=== PATIENT | female | born 1980 | race Caucasian/White ===

== ENCOUNTER → 2024-08-23 14:06 | Outpatient (CLI) | payer BC, SELFPAY ==
--- NOTE | 2024-08-23 14:45 | DI.US.S_ITS ---
PROCEDURE: US THYROID INDICATIONS: GOITER TECHNIQUE: Real-time scanning was performed of the thyroid gland, with image documentation. COMPARISON: None. FINDINGS: Thyroid: Right lobe measures 4.8 x 1.8 x 1.7 cm. Left lobe measures 4.2 x 1.1 x 0.9 cm. Isthmus is 0.2 cm thick. Echotexture is heterogenous and edematous with hyperemia demonstrated on color Doppler. No definite nodules are seen. IMPRESSION: 1. Findings compatible with thyroiditis. 2. No suspicious nodules. Dictated by: Mark Burgos M.D. on 08/24/2024 at 12:03 Approved by: Mark Burgos M.D. on 08/24/2024 at 12:05
[2024-08-23 15:14] LABS: Add Manual Diff / Slide Review NO; Basophils Absolute Auto 100 /uL (0-100); Basophils Percent Auto 0.8 % (0-2); Eosinophils Absolute Auto 100 /uL (0-450); Eosinophils Percent Auto 2.1 % (2-4); Hematocrit 40.5 % (36-46); Hemoglobin 13.8 g/dL (12.0-16.0); Lymphocytes Absolute Auto 1800 /uL (1100-4500); Lymphocytes Percent Auto 29.7 % (25-40); Mean Corpuscular Hemoglobin 29.6 PG (26-34); Monocytes Absolute Auto 400 /uL (0-900); Monocytes Percent Auto 6.3 % (3-14); Neutrophils Absolute Auto 3700 /uL (1500-7000); Neutrophils Percent Auto 61.1 % (50-75); Platelet Count 304 X10^3/uL (150-400); Red Blood Cell Count 4.66 X10^6/uL (4.0-5.2); Red Cell Distribution Width 12.7 % (11.6-14.8)
[2024-08-23 15:40] LABS: Alanine Aminotransferase 36 IU/L (<35); Albumin 4.6 g/dL (3.5-5.0); Albumin Globulin Ratio 1.6 (1.0-2.8); Alkaline Phosphatase 50 U/L (38-126); Aspartate Aminotransferase 28 IU/L (14-36); Bilirubin Total 0.4 mg/dL (0.2-1.3); Blood Urea Nitrogen 9 mg/dL (7-17); Calcium 9.6 mg/dL (8.4-10.2); Carbon Dioxide 27 mmol/L (22-32); Chloride 103 mmol/L (98-107); Estimated Glomerular Filt Rate > 60 mL/min (>60); Globulin 2.8 g/dL (1.7-4.1); Glucose 88 mg/dL (70-100); HEMOLYSIS < 15 (0-50); Potassium 4.1 mmol/L (3.4-5.1); Sodium 139 mmol/L (137-145); Total Protein 7.4 g/dL (6.3-8.2)
[2024-08-23 15:54] LABS: Free T3, Triiodothyronine Free 3.92 pg/mL (2.77-5.27); Free T4, Direct Thyroxine 1.22 ng/dL (0.78-2.19)
[2024-08-23 16:08] LABS: Thyroid Stimulating Hormone 2.16 uIU/mL (0.47-4.68)
[2024-08-23 16:53] LABS: Erythrocyte Sedimentation Rate 17 MM/HR (0-20)
== END ==
PROVIDERS: PCP Family Medicine; Referring Provider Family Medicine; Visit Provider Family Medicine
DX: E04.9 Nontoxic goiter, unspecified (principal); E88.819 Insulin resistance, unspecified
CPT/HCPCS: 36415; 76536; 80053; 83036; 84439; 84443; 84481; 85025; 85651; 86376; 86800

== ENCOUNTER → 2025-06-07 10:32 | Outpatient (CLI) | payer OTHER, SELFPAY ==
--- NOTE | 2025-06-07 10:34 | DI.US.S_ITS ---
PROCEDURE: US PELVIC COMPLETE
== END ==
LOC: US 10:33
PROVIDERS: PCP Nurse Practitioner Family; Referring Provider Nurse Practitioner Family; Visit Provider Nurse Practitioner Family
DX: N92.1 Excessive and frequent menstruation with irregular cycle (principal); D25.1 Intramural leiomyoma of uterus
CPT/HCPCS: 76830; 76856